=== PATIENT | male | born 1940 | race Caucasian/White ===

== ENCOUNTER 2017-09-09 08:19 | Emergency (ER) | payer MEDICARE, OTHER ==
--- NOTE | 2017-09-09 09:15 | EKG REPORT ---
SEVERITY:- ABNORMAL ECG - SINUS TACHYCARDIA NONSPECIFIC T ABNORMALITIES, LATERAL LEADS : Confirmed by: Amy Blanco 09-Sep-2017 09:15:26
[2017-09-09 09:18] LABS: ABSOLUTE LYMPHOCYTES (AUTO) 0.9 10^3/uL (0.5-4.7); ABSOLUTE MONOCYTES (AUTO) 0.4 10^3/uL (0.1-1.4); ABSOLUTE NEUT (AUTO) 2.4 10^3/uL (1.7-8.2); BASOPHILS % (AUTO) 0.6 % (0-2); EOSINOPHILS % (AUTO) 0.8 % (0-6); HEMATOCRIT 36.8 % (37.9-51.0); HEMOGLOBIN 13.1 g/dL (13.5-17.0); HGB HCT DIFFERENCE 2.5; LYMPHOCYTES % (AUTO) 24.1 % (13-45); MEAN CORPUSCULAR HEMOGLOBIN 32.9 pg (27.0-33.4); MEAN CORPUSCULAR HGB CONC 35.6 g/dL (32.0-36.0); MEAN CORPUSCULAR VOLUME 92 fl (80-97); MONOCYTES % (AUTO) 11.4 % (3-13); RED BLOOD COUNT 3.98 10^6/uL (4.35-5.55); RED CELL DISTRIBUTION WIDTH 12.6 % (11.5-14.0); SEGMENTED NEUTROPHILS % (AUTO) 63.1 % (42-78); WHITE BLOOD COUNT 3.8 10^3/uL (4.0-10.5)
--- NOTE | 2017-09-09 09:24 | ER Document Report ---
ED Fall - General Mode of Arrival: Ambulatory Information source: Patient TRAVEL OUTSIDE OF THE [place] IN LAST 30 DAYS: No <MAYELIN GARDINER - Last Filed: 09/09/17 11:25> <LAKESHA ANDERSON - Last Filed: 09/09/17 15:52> - General Chief Complaint: Arm Injury Stated Complaint: FALL/SHOULDER PAIN Time Seen by Provider: 09/09/17 08:36 Notes: Patient is a 77-year-old male who presents to the emergency department today with complaints of a [place] that occurred [place] the [place] when he was visiting his mother just prior to arrival. Patient complains of right shoulder pain. Patient states he thinks he hit his head but has no head or neck pain. ( MAYELIN GARDINER) - Related data Allergies/Adverse Reactions: No Known Allergies Allergy (Unverified 06/14/14 12:24) Past Medical History - General Information source: Patient - Social History Smoking Status: Unknown if Ever Smoked Cigarette use (# per day): No Frequency of alcohol use: None Drug Abuse: None Lives with: Family Family History: Reviewed & Not Pertinent Patient has suicidal ideation: No Patient has homicidal ideation: No - Past Medical History Cardiac Medical History: Reports: Hx Hypertension - CONTROLLED WITH MEDS Surgical Hx: Negative <MAYELIN GARDINER - Last Filed: 09/09/17 11:25> Review of Systems - Review of Systems Constitutional: No symptoms reported EENT: No symptoms reported Cardiovascular: No symptoms reported Respiratory: No symptoms reported Gastrointestinal: No symptoms reported Genitourinary: No symptoms reported Male Genitourinary: No symptoms reported Musculoskeletal: See HPI, Joint pain - right shoulder Skin: No symptoms reported Hematologic/Lymphatic: No symptoms reported Neurological/Psychological: No symptoms reported -: Yes All other systems reviewed and negative <MAYELIN GARDINER - Last Filed: 09/09/17 11:25> Physical Exam - Vital signs Interpretation: Tachycardic - General General appearance: Alert In distress: None - HEENT Head: Normocephalic, Atraumatic Eyes: Normal Pupils: PERRL - Respiratory Respiratory status: No respiratory distress Chest status: Nontender Breath sounds: Normal Chest palpation: Normal - Cardiovascular Rhythm: Regular Heart sounds: Normal auscultation Murmur: No - Abdominal Inspection: Normal Distension: No distension Bowel sounds: Normal Tenderness: Nontender Organomegaly: No organomegaly - Back Back: Normal, Nontender - Extremities General upper extremity: Tender, Normal color, Normal ROM, Normal temperature General lower extremity: Normal inspection, Nontender, Normal color, Normal ROM , Normal temperature, Normal weight bearing. No: Suyapa's sign Arm: Tender - Proximal right humerus, proximal AC, supraspinatus Elbow: Normal, Nontender. No: Deformity, Limited ROM Forearm: Normal Wrist: Normal Hand: Normal Hip: Normal Thigh: Normal Knee: Normal Calf: Normal Ankle: Normal Foot: Normal - Neurological Neuro grossly intact: Yes Cognition: Normal Orientation: AAOx4 [place] Coma Scale Eye Opening: Spontaneous [place] Coma Scale Verbal: Oriented [place] Coma Scale Motor: Obeys Commands [place] Coma Scale Total: 15 Speech: Normal Motor strength normal: LUE, RUE, LLE, RLE Sensory: Normal - Psychological Associated symptoms: Normal affect, Normal mood - Skin Skin Temperature: Warm Skin Moisture: Dry Skin Color: Normal <LAKESHA ANDERSON - Last Filed: 09/09/17 15:52> - Vital signs Vitals: Temp Pulse Resp BP Pulse Ox 97.6 F 117 H 12 160/95 H 97 09/09/17 08:20 09/09/17 08:20 09/09/17 08:20 09/09/17 08:20 09/09/17 08:20 Course - Laboratory Result Diagrams: 09/09/17 09:00 09/09/17 09:00 <MAYELIN GARDINER - Last Filed: 09/09/17 11:25> - Laboratory Result Diagrams: 09/09/17 09:00 09/09/17 11:45 - Diagnostic Test Radiology reviewed: Image reviewed, Reports reviewed <LAKESHA ANDERSON - Last Filed: 09/09/17 15:52> - Re-evaluation Re-evalutation: 09/09/17 Patient is a 77-year-old male who presents with a fall. Patient thinks he hit his head. 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 Patient with tenderness to palpation over his right proximal humerus. No acute findings on x-rays. Patient is feeling better after ibuprofen which she has requested. Blood work within normal limits. No acute findings on EKG. Patient would like to go home. He is to follow-up with his primary care doctor this week and orthopedics next week. Return immediately if any worsening or concerning symptoms. Understands agrees with plan. Stable for discharge. (LAKESHA ANDERSON) - Vital Signs Vital signs: Temp Pulse Resp BP Pulse Ox 97.1 F 106 H 13 154/78 H 98 09/09/17 13:59 09/09/17 13:59 09/09/17 13:59 09/09/17 13:59 09/09/17 13:59 - Laboratory Laboratory results interpreted by me: 09/09/17 09/09/17 09/09/17 09:00 11:45 11:45 WBC 3.8 L RBC 3.98 L Hgb 13.1 L Hct 36.8 L Sodium 131.3 L Chloride 95 L Est GFR (Non-Af Amer) 59 L Creatine Kinase 443 H CK-MB (CK-2) 11.90 H Total Protein 6.1 L Discharge <MAYELIN GARDINER - Last Filed: 09/09/17 11:25> <LAKESHA ANDERSON - Last Filed: 09/09/17 15:52> - Discharge Clinical Impression: Fall Qualifiers: Encounter type: initial encounter Qualified Code(s): W19.XXXA - Unspecified fall, initial encounter Right shoulder injury Qualifiers: Encounter type: initial encounter Qualified Code(s): S49.91XA - Unspecified injury of right shoulder and upper arm, initial encounter Condition: Stable Disposition: HOME, SELF-CARE Instructions: Rotator Cuff Injury ([facility]), Shoulder Injury ([facility]), Temporary Sling ([facility]) Additional Instructions: Please follow-up with your doctor this week. Please follow-up with the orthopedic doctor within a week. Referrals: KETTY ORTIZ MD [ACTIVE STAFF] - Follow up in 1 week Scribe Attestation: 09/09/17 15:52 I personally performed the services described in the documentation, reviewed and edited the documentation which was dictated to the scribe in my presence, and it accurately records my words and actions. (LAKESHA ANDERSON) Scribe Documentation - Scribe Written by Scribe:: Hamida Langford, 09/09/2017 1129 acting as scribe for Dr.:: Lelo <MAYELIN GARDINER - Last Filed: 09/09/17 11:25>
[2017-09-09 09:26] LABS: PROTHROMBIN TIME 13.9 SEC (11.4-15.4)
[2017-09-09] MEDS ORDERED: NORMAL SALINE 500 ML IV ONE ×2 (09:57→12:43)
--- NOTE | 2017-09-09 10:11 | RADIOLOGY REPORT (SQ) ---
EXAM DESCRIPTION: CT HEAD WITHOUT COMPLETED DATE/TIME: 09/09/2017 9:42 am REASON FOR STUDY: fall, loc COMPARISON: CT cervical spine same date TECHNIQUE: Axial images acquired through the brain without intravenous contrast. Images reviewed wi th bone, brain and subdural windows. Images stored on PACS. All CT scanners at this facility use dose modulation, iterative reconstruction, and/or weight based d osing when appropriate to reduce radiation dose to as low as reasonably achievable (ALARA). [facility]: Dose Right [facility]: CareDose [facility]: Dose Right [facility]: Teradose 4D [facility]: Smart [employer] RADIATION DOSE: Up-to-date CT equipment and radiation dose reduction techniques were employed. CTDIv ol: 64.6 mGy. DLP: 1163 mGy-cm. mGy. LIMITATIONS: None. FINDINGS: VENTRICLES: There is appropriate prominence of the ventricles and sulci CEREBRUM: No masses. No hemorrhage. No midline shift. No evidence for acute infarction. Normal gra y/white matter differentiation. No areas of low density in the white matter. CEREBELLUM: No masses. No hemorrhage. No alteration of density. No evidence for acute infarction. EXTRAAXIAL SPACES: No fluid collections. No masses. ORBITS AND GLOBE: No intra- or extraconal masses. Normal contour of globe without masses. Post bila teral cataract surgery CALVARIUM: No fracture. PARANASAL SINUSES: Mucous membrane thickening and fluid in the bilateral ethmoid air cells and left s phenoid sinus SOFT TISSUES: No mass or hematoma. OTHER: No other significant finding. IMPRESSION: No acute findings EVIDENCE OF ACUTE STROKE: NO. COMMENT: Quality ID # [id number]: Final reports with documentation of one or more dose reduction techniques (e.g., Automated exposure control, adjustment of the mA and/or kV according to patient size, use of iterative reconstruction technique) TECHNICAL DOCUMENTATION: JOB ID: [id number] [employer]- All Rights Reserved
--- NOTE | 2017-09-09 10:16 | RADIOLOGY REPORT (SQ) ---
EXAM DESCRIPTION: CT CERVICAL SPINE WITHOUT COMPLETED DATE/TIME: 09/09/2017 9:42 am REASON FOR STUDY: fall, pain COMPARISON: CT brain same date TECHNIQUE: Axial images acquired through the cervical spine without intravenous contrast. Images re viewed with lung, soft tissue and bone windows. Reconstructed coronal and sagittal MPR images review ed. Images stored on PACS. All CT scanners at this facility use dose modulation, iterative reconstruction, and/or weight based d osing when appropriate to reduce radiation dose to as low as reasonably achievable (ALARA). [facility]: Dose Right [facility]: CareDose [facility]: Dose Right [facility]: Teradose 4D [facility]: Smart [employer] RADIATION DOSE: Up-to-date CT equipment and radiation dose reduction techniques were employed. CTDIv ol: 22.3 mGy. DLP: 438 mGy-cm. mGy. LIMITATIONS: None. FINDINGS: ALIGNMENT: Anatomic. MINERALIZATION: Normal. VERTEBRAL BODIES: No fractures or dislocation. DISCS: No significant disc disease. FACETS, LATERAL MASSES, POSTERIOR ELEMENTS: No fractures. No dislocation. No acute findings. HARDWARE: None in the spine. VISUALIZED RIBS: No fractures. LUNG APICES AND SOFT TISSUES: Lung apices are clear. Calcified bilateral carotid bifurcations OTHER: No other significant finding. IMPRESSION: No acute findings TECHNICAL DOCUMENTATION: JOB ID: [id number] Quality ID # [id number]: Final reports with documentation of one or more dose reduction techniques (e.g., Au tomated exposure control, adjustment of the mA and/or kV according to patient size, use of iterative reconstruction technique) 2010 [employer]- All Rights Reserved
--- NOTE | 2017-09-09 10:18 | RADIOLOGY REPORT (SQ) ---
EXAM DESCRIPTION: HUMERUS RIGHT COMPLETED DATE/TIME: 09/09/2017 9:50 am REASON FOR STUDY: fall, pain prox humerus COMPARISON: None. NUMBER OF VIEWS: Two views. TECHNIQUE: Two radiographic images were acquired of the right humerus to include elbow and shoulder in at least one projection. LIMITATIONS: None. FINDINGS: MINERALIZATION: Normal. BONES: No acute fracture or dislocation. No worrisome bone lesions. SOFT TISSUES: No obvious swelling or foreign body. OTHER: No other significant finding. IMPRESSION: NEGATIVE STUDY OF THE RIGHT HUMERUS. NO RADIOGRAPHIC EVIDENCE OF ACUTE INJURY. TECHNICAL DOCUMENTATION: JOB ID: [id number] [employer]- All Rights Reserved
--- NOTE | 2017-09-09 10:19 | RADIOLOGY REPORT (SQ) ---
EXAM DESCRIPTION: SHOULDER RIGHT 2 OR MORE VIEWS COMPLETED DATE/TIME: 09/09/2017 9:50 am REASON FOR STUDY: fall, pain, prox humerus COMPARISON: None. NUMBER OF VIEWS: Three views. TECHNIQUE: Internal rotation, external rotation, and Y view images acquired of the right shoulder. LIMITATIONS: None. FINDINGS: MINERALIZATION: Normal. BONES: No acute fracture or dislocation. No worrisome bone lesions. JOINTS: No dislocation. VISUALIZED LUNGS AND RIBS: No pneumothorax. No rib fracture. SOFT TISSUES: No radiopaque foreign body. OTHER: No other significant finding. IMPRESSION: NEGATIVE STUDY OF THE RIGHT SHOULDER. NO RADIOGRAPHIC EVIDENCE OF ACUTE INJURY. TECHNICAL DOCUMENTATION: JOB ID: [id number] [employer]- All Rights Reserved
[2017-09-09 10:52] LABS: APPEARANCE,URINE CLEAR; BILIRUBIN,URINE NEGATIVE (NEGATIVE); GLUCOSE, URINE NEGATIVE (NEGATIVE); KETONES,URINE NEGATIVE (NEGATIVE); LEUKOCYTE ESTERASE,URINE NEGATIVE (NEGATIVE); NITRITE,URINE NEGATIVE (NEGATIVE); PROTEIN,URINE NEGATIVE (NEGATIVE); URINE SPECIFIC GRAVITY 1.015; UROBILINOGEN,URINE NEGATIVE mg/dL (<2.0)
--- NOTE | 2017-09-09 11:09 | RADIOLOGY REPORT (SQ) ---
EXAM DESCRIPTION: CHEST SINGLE VIEW COMPLETED DATE/TIME: 09/09/2017 10:49 am REASON FOR STUDY: chest wall pain COMPARISON: None. EXAM PARAMETERS: NUMBER OF VIEWS: One view. TECHNIQUE: Single frontal radiographic view of the chest acquired. RADIATION DOSE: NA LIMITATIONS: Patient is rotated slightly toward the right. FINDINGS: LUNGS AND PLEURA: No opacities, masses or pneumothorax. No pleural effusion. MEDIASTINUM AND HILAR STRUCTURES: Cannot exclude upper mediastinal widening. The appearance may be p ositional. HEART AND VASCULAR STRUCTURES: Heart normal in size. Normal vasculature. BONES: No acute findings. HARDWARE: None in the chest. OTHER: No other significant finding. IMPRESSION: Questionable upper mediastinal widening. No acute cardiopulmonary disease. TECHNICAL DOCUMENTATION: JOB ID: [id number] [employer]- All Rights Reserved
[2017-09-09 12:29] LABS: ALANINE AMINOTRANSFERASE 47 U/L (21-72); ALBUMIN 4.2 g/dL (3.5-5.0); ALKALINE PHOSPHATASE 77 U/L (38-126); ANION GAP 11 (5-19); ASPARTATE AMINO TRANSFERASE 31 U/L (17-59); BILIRUBIN,DIRECT 0.4 mg/dL (0.0-0.4); BILIRUBIN,TOTAL 0.8 mg/dL (0.2-1.3); BLOOD UREA NITROGEN 18 mg/dL (7-20); CALCIUM 9.2 mg/dL (8.4-10.2); CARBON DIOXIDE 25 mmol/L (22-30); CHLORIDE 95 mmol/L (98-107); CREATINE KINASE 443 U/L (55-170); GLUCOSE 105 mg/dL (75-110); POTASSIUM 3.6 mmol/L (3.6-5.0); SODIUM 131.3 mmol/L (137-145); TOTAL PROTEIN 6.1 g/dL (6.3-8.2)
[2017-09-09 12:37] LABS: CREATINE KINASE MB 11.9 ng/mL (<4.55); TROPONIN I 0.013 ng/mL
[2017-09-09] MEDS ORDERED: IBUPROFEN 800 MG TABLET PO ONE (12:40)
[2017-09-09 14:01] VITALS: BP 154/78
== END 2017-09-09 14:00 | disposition home or self-care (01) ==
LOC: ER 08:19
DX: S49.91XA Unspecified injury of right shoulder and upper arm, initial encounter (principal); W18.30XA Fall on same level, unspecified, initial encounter
CPT/HCPCS: 93005; 99284; 96360; 96361; 36415; 82553; 82550; 85025; 85610; 80053; 81001; 84484; 71010; 73060; 73030; 70450; 72125; 93010; A9270; J7040